=== PATIENT | female | born 1965 | race Caucasian/White ===

== ENCOUNTER 2016-12-13 22:14 | Emergency (ER) ==
[2016-12-13 22:51] LABS: MANUAL DIFF NEEDED? NO
[2016-12-13 22:55] LABS: BASO% 0.5 % (0.0-0.8); EOS# 0.35 X1000 (0.0-0.7); EOS% 4.4 % (0.0-10.0); HEMATOCRIT 42.2 % (37.0-47.0); HEMOGLOBIN 13.9 g/dL (12.0-16.0); LYMPH# 1.76 X1000 (1.2-3.4); MCH 28.8 PG (27-31); MCHC 32.9 g/dL (33-37); MCV 87.4 FL (81-99); MONO# 0.93 X1000 (0.11-0.59); MONO% 11.6 % (1.7-9.3); MPV 10.4 FL (7.4-10.4); NEUT% 61.5 % (42.2-75.2); PLT 328 X1000 (130-400); RBC 4.83 XMIL (4.2-5.4)
[2016-12-13 23:04] LABS: INR 0.95; PROTIME 10.1 Seconds (9.2-11.7); PTT 26.5 Seconds (22.0-36.0)
[2016-12-13 23:31] LABS: AGAP 18; ALBUMIN 4.3 g/dL (3.5-5.0); ALKALINE PHOSPHATASE 95 U/L (32-104); BUN 15 mg/dL (8-22); CALCIUM 9.7 mg/dL (8.8-10.2); CHLORIDE 97 mmol/L (98-107); CK PROFILE 62 U/L (24-173); COSMO 284; GOT 17 U/L (10-30); GPT 18 U/L (10-36); MAGNESIUM 2.2 mg/dL (1.5-2.7); POTASSIUM 4.5 mmol/L (3.5-5.1); SODIUM 139 mmol/L (136-145); TCO2 24 mmol/L (25-35); TOTAL BILIRUBIN 0.26 mg/dL (0.20-1.00); TOTAL PROTEIN 6.7 g/dL (6.3-8.3)
[2016-12-14] MEDS ORDERED: PROTONIX IV ONE (00:34)
[2016-12-14] MEDS ORDERED: SODIUM CHLORIDE 0.9% INJ ONE (00:34)
[2016-12-14] MEDS ORDERED: G.I. COCKTAIL PO ONE (00:34)
--- NOTE | 2016-12-14 01:09 | PROVIDER DOCUMENTATION ---
HPI-Chest Pain - General Source: patient - History of Present Illness-CP Location: reports: substernal Chest Pain Radiation: reports: no radiation Quality of Pain: reports: aching Severity in ED: mild Onset/Duration: last night Timing: resolved prior to arrival Context/Activities at Onset: reports: none Associated Symptoms: reports: shortness of breath Aspirin Treatment Today: 81 mg x 2, provided at home Similar Symptoms Previously?: No Recently Seen Here or By Another Healthcare Provider: No <Fawn Flor - Last Filed: 12/14/16 01:04> <Chema Curry - Last Filed: 12/14/16 02:51> - General Chief Complaint: Chest Pain Stated Complaint: CP Time Seen by Provider: 12/14/16 00:18 Allergies/Adverse Reactions: Patient Allergies Allergy/AdvReac Type Severity Reaction Status Date / Time codeine AdvReac NAUSEA Verified 12/13/16 22:34 Sulfa (Sulfonamide AdvReac RASH Verified 12/13/16 22:34 Antibiotics) tetracycline AdvReac NAUSEA Verified 12/13/16 22:34 Home Medications: Home Medication List Medication Instructions Recorded Confirmed Last Taken Type Cetirizine [Zyrtec] 10 mg PO DAILY #20 tablet 12/14/16 Unknown Rx Omeprazole 20 mg PO DAILY #20 tablet. 12/14/16 Unknown Rx - History of Present Illness-CP Nature of Presenting Problem: 51 year old F presents to the ED with a cc of chest pain and shortness of breath. PT states that it began while sitting on the cough. PT denies nausea, vomiting, and diaphoresis. PT took x2 81 mg of Aspirin at home [employer]. PT states that she has a hx of palpitations and GERD. (Fawn Flor) Review of Systems - Adult - REVIEW OF SYSTEMS - ADULT Constitutional: denies: chills, fever Eyes: reports: no symptoms reported Ears, Nose, Mouth & Throat: reports: no symptoms reported Cardiovascular: reports: chest pain. denies: palpitations Respiratory: reports: shortness of breath. denies: cough Gastrointestinal: denies: abdominal pain, diarrhea, nausea, vomiting Genitourinary: denies: dysuria, hematuria Musculoskeletal: denies: back pain, neck pain Integumentary: reports: no symptoms reported Neurological: denies: dizziness/vertigo, headache/migraines Psychiatric: reports: no symptoms reported Endocrine: reports: no symptoms reported Hematologic/Lymphatic: reports: no symptoms reported Allergic/Immunologic: reports: no symptoms reported All Other Systems: Reviewed and Negative <Fawn Flor - Last Filed: 12/14/16 01:04> Past History - Adult - PAST MEDICAL HISTORY-ADULT Review of Records: reports: Nursing Assessment Review, Medications Reviewed Major Childhood Illnesses: reports: denies history Cardiovascular: reports: denies history Respiratory: reports: denies history Gastrointestinal: reports: GERD Obstetrical/Gynecological: reports: denies history Genitourinary: reports: denies history Musculoskeletal: reports: denies history Neurological: reports: denies history Endocrine/Immune: reports: Diabetes, thyroid disorder Other Conditions: reports: denies history - PRIOR SURGERIES/PROCEDURES Surgical/Procedure History: reports: hysterectomy, orthopedic (extremity) - IMMUNIZATION STATUS Childhood Immunizations: See Nurse Assessment Flu Vaccine: See Nurse Assessment - FAMILY HISTORY Family History: reviewed, not pertinent - SOCIAL HISTORY Smoking: non-smoker Substance Use: none/never Alcohol Use Frequency: never <Fawn Flor Last Filed: 12/14/16 01:04> Physical Exam-General - PHYSICAL EXAM-ADULT Initial Vital Signs Reviewed: Yes - CONSTITUTIONAL General Appearance: appears well, alert, no apparent distress - RESPIRATORY Respiratory: chest non-tender, lungs clear, normal breath sounds - CARDIOVASCULAR Cardiovascular: normal peripheral pulses, regular rate, rhythm, no edema - GASTROINTESTINAL (ABDOMEN) Abdominal Exam: normal bowel sounds, non tender, soft - MUSCULOSKELETAL Extremity: normal inspection, no pedal edema - SKIN Integumentary: normal color, normal turgor, warm/dry - PSYCHIATRIC Psych/Mental Status: normal mood/affect, normal thought content, normal thought process, oriented x 3 <Fawn Flor - Last Filed: 12/14/16 01:04> Progress - EKG 1 Time of EKG reading by physician:: 22:20 EKG Read and Signed by:: Hunter Marinelli EKG Interpretation (*Must complete 3 of following elements*): Abnormal Rate: 83 Rhythm: NSR [employer]: normal Comments: possible L atrial enlargement, cannot r/o anterior infarct,age undetermined <Fawn Flor - Last Filed: 12/14/16 01:04> - XRAY 1 XRAY Study: Chest XRAY Interpretation: [facility] [place]) - CT/MRI 1 CT Study: Thorax CT Results: No PE identified (Ivanlucia) <Chema Curry - Last Filed: 12/14/16 02:51> - PLAN OF CARE/RESULTS Progress/Plan/Lab Results: Discussed results and plan of care with patient. Patient agrees with plan and verbalizes understanding. Vital Signs Temp Pulse Resp BP Pulse Ox 12/14/16 01:24 85 20 155/90 99 12/13/16 22:25 97.9 F 82 17 173/81 100 codeine Adverse Reaction (Verified 12/13/16 22:34) NAUSEA Sulfa (Sulfonamide Antibiotics) Adverse Reaction (Verified 12/13/16 22:34) RASH tetracycline Adverse Reaction (Verified 12/13/16 22:34) NAUSEA Laboratory 12/13/16 12/13/16 12/13/16 22:35 22:35 22:35 WBC RBC Hgb Hct MCV MCH MCHC RDW Std Deviation Plt Count MPV Immature Gran % (Auto) Neut % (Auto) Lymph % (Auto) [place] % (Auto) Eos % (Auto) Baso % (Auto) Immature Gran # (Auto) Neut # (Auto) Lymph # (Auto) [place] # (Auto) Eos # (Auto) Baso # (Auto) PT 10.1 INR 0.95 PTT (Actin FS) 26.5 D-Dimer Sodium Potassium Chloride Carbon Dioxide Anion Gap BUN Creatinine Estimated GFR/1.73 m2 BUN/Creatinine Ratio Glucose Calculated Osmolality Calcium Magnesium Total Bilirubin AST ALT Alkaline Phosphatase Creatine Kinase Troponin T < 0.010 Lwa-N-Judxyybptpo Pept 22 Total Protein Albumin Globulin Albumin/Globulin Ratio 12/13/16 12/13/16 12/13/16 22:35 22:35 22:35 WBC 8.00 RBC 4.83 Hgb 13.9 Hct 42.2 MCV 87.4 MCH 28.8 MCHC 32.9 L RDW Std Deviation 12.6 Plt Count 328 MPV 10.4 Immature Gran % (Auto) 0.0 Neut % (Auto) 61.5 Lymph % (Auto) 22.0 [place] % (Auto) 11.6 H Eos % (Auto) 4.4 Baso % (Auto) 0.5 Immature Gran # (Auto) 0.00 Neut # (Auto) 4.92 Lymph # (Auto) 1.76 [place] # (Auto) 0.93 H Eos # (Auto) 0.35 Baso # (Auto) 0.04 PT INR PTT (Actin FS) D-Dimer 0.95 H Sodium 139 Potassium 4.5 Chloride 97 L Carbon Dioxide 24 L Anion Gap 18 BUN 15 Creatinine 0.9 Estimated GFR/1.73 m2 > 60 BUN/Creatinine Ratio 17 Glucose 203 H Calculated Osmolality 284 Calcium 9.7 Magnesium 2.2 Total Bilirubin 0.26 AST 17 ALT 18 Alkaline Phosphatase 95 Creatine Kinase 62 Troponin T Owh-T-Mujgxxmkxhk Pept Total Protein 6.7 Albumin 4.3 Globulin 2.4 Albumin/Globulin Ratio 1.8 Orders Category Date Time Status Cardiac Monitoring DIRECTED Care 12/13/16 22:36 Active Saline Loc NOW Care 12/13/16 22:36 Active CHEST-2 VIEWS [RAD] Stat Exams 12/13/16 22:36 Taken CTA [ANGIOGRAM/PULMONARY ARTERIES] [CT] Stat Exams 12/14/16 00:34 Ordered CBC WITH ELECTRONIC DIFF [HEME] Stat Lab 12/13/16 22:35 Completed CK PROFILE [SP CHEM] Stat Lab 12/13/16 22:35 Completed COMPREHENSIVE METABOLIC PANEL [CHEM] Stat Lab 12/13/16 22:35 Completed D-DIMER [CHEM] Stat Lab 12/13/16 22:35 Completed MAGNESIUM [CHEM] Stat Lab 12/13/16 22:35 Completed PRO B-NATRIURETIC PEPTIDE Stat Lab 12/13/16 22:35 Completed PROTIME WITH INR [COAG] Stat Lab 12/13/16 22:35 Completed PTT [COAG] Stat Lab 12/13/16 22:35 Completed TROPONIN T Stat Lab 12/13/16 22:35 Completed [place] Alk/Al&mg Hydrox [G.i. Cocktail] Med 12/14/16 00:34 Discontinued 30 ml PO NOW ONE Pantoprazole [Protonix] Med 12/14/16 00:34 Discontinued 40 mg IV NOW ONE Sodium Chloride 0.9% Med 12/14/16 00:34 Discontinued 10 ml INJ NOW ONE EKG [EKG] Stat Ther 12/13/16 22:15 Ordered Laboratory Tests 12/13/16 12/13/16 12/13/16 22:35 22:35 22:35 WBC 8.00 RBC 4.83 Hgb 13.9 Hct 42.2 MCV 87.4 MCH 28.8 MCHC 32.9 L RDW Std Deviation 12.6 Plt Count 328 MPV 10.4 Immature Gran % (Auto) 0.0 Neut % (Auto) 61.5 Lymph % (Auto) 22.0 [place] % (Auto) 11.6 H Eos % (Auto) 4.4 Baso % (Auto) 0.5 Immature Gran # (Auto) 0.00 Neut # (Auto) 4.92 Lymph # (Auto) 1.76 [place] # (Auto) 0.93 H Eos # (Auto) 0.35 Baso # (Auto) 0.04 PT INR PTT (Actin FS) D-Dimer 0.95 H Sodium 139 Potassium 4.5 Chloride 97 L Carbon Dioxide 24 L Anion Gap 18 BUN 15 Creatinine 0.9 Estimated GFR/1.73 m2 > 60 BUN/Creatinine Ratio 17 Glucose 203 H Calculated Osmolality 284 Calcium 9.7 Magnesium 2.2 Total Bilirubin 0.26 AST 17 ALT 18 Alkaline Phosphatase 95 Creatine Kinase 62 Troponin T Dor-K-Ezvfwhpjpeb Pept Total Protein 6.7 Albumin 4.3 Globulin 2.4 Albumin/Globulin Ratio 1.8 12/13/16 12/13/16 12/13/16 22:35 22:35 22:35 WBC RBC Hgb Hct MCV MCH MCHC RDW Std Deviation Plt Count MPV Immature Gran % (Auto) Neut % (Auto) Lymph % (Auto) [place] % (Auto) Eos % (Auto) Baso % (Auto) Immature Gran # (Auto) Neut # (Auto) Lymph # (Auto) [place] # (Auto) Eos # (Auto) Baso # (Auto) PT 10.1 INR 0.95 PTT (Actin FS) 26.5 D-Dimer Sodium Potassium Chloride Carbon Dioxide Anion Gap BUN Creatinine Estimated GFR/1.73 m2 BUN/Creatinine Ratio Glucose Calculated Osmolality Calcium Magnesium Total Bilirubin AST ALT Alkaline Phosphatase Creatine Kinase Troponin T < 0.010 Sxu-K-Eeedwcywmcx Pept 22 Total Protein Albumin Globulin Albumin/Globulin Ratio (Chema Curry) Departure <Fawn Flor - Last Filed: 12/14/16 01:04> - Departure Time of Disposition Order: 02:46 Certified Medical Emergency: Emergent <Chema Curry - Last Filed: 12/14/16 02:51> - Departure DIAGNOSIS: GERD (gastroesophageal reflux disease) Qualifiers: Esophagitis presence: without esophagitis Qualified Code(s): K21.9 - Gastro- esophageal reflux disease without esophagitis Disposition: HOME 01 Condition: Stable Additional Instructions: Follow up with primary care physician Take medications as directed Return to ED for any concerns or worsening of symptoms ED Follow Up Instructions: You have been treated by a care provider in the Emergency Department. These instructions are being provided to you so you can have an understanding of how to care for yourself upon discharge. Upon discharge from the Emergency Department, you are responsible for making arrangements for follow-up care by a physician of your choice. Take all prescribed medications as directed. Return to the Emergency Department immediately for any new or worsening symptoms. You may call the Physician Referral phone number at [phone] to obtain a list of Physicians who are taking new patients. Prescriptions: Omeprazole 20 mg PO DAILY #20 tablet. Cetirizine [Zyrtec] 10 mg PO DAILY #20 tablet Attestation - Scribe Verification/Attestation Scribe:: Fawn Flor Acting as Scribe for:: Chema Curry Scribe documention review:: This chart was documented by a scribe and accurately reflects the service the provider performed and the decisions made by the provider. <Fawn Flor - Last Filed: 12/14/16 01:04> - Physician/ BRIELLE Attestation Patient care was provided by Advanced Practice Provider:: Yes Advanced Practice Provider:: Chema Curry Advanced Practice Provider documentation review:: The Mid-level provider documentation, treatment plan and medical decision making was reviewed by the physician who agrees with all treatment and medical decision making by the [facility]. <Chema Curry - Last Filed: 12/14/16 02:51> Physician Attestation - Physician Attestation I, the provider, attest to the following statement:: Chema Curry Physician documentation Attestation:: This documentation recorded by the scribe accurately reflects the service I personally performed and the decisions made by me. <Fawn Flor - Last Filed: 12/14/16 01:04>
[2016-12-14 01:24] VITALS: BP 155/90
--- NOTE | 2016-12-14 06:00 | EKG Report ---
Test Performed on : 12/13/2016 10:20:55 PM Test Reason : CP Blood Pressure : / mmHG Vent. Rate : 083 BPM Atrial Rate : 083 BPM P-R Int : 168 ms QRS Dur : 074 ms QT Int : 390 ms P-R-T Axes : 048 025 054 degrees QTc Int : 458 ms Normal sinus rhythm. Possible Left atrial enlargement Cannot rule out Anterior infarct , age undetermined Abnormal ECG No previous ECGs available Unconfirmed Result
--- NOTE | 2016-12-14 08:20 | Diag Imaging Result Document ---
PROCEDURE NAME: CHEST-2 VIEWS - 12/13/2016 FRONTAL AND LATERAL CHEST, TWO VIEWS: FINDINGS: The lungs are well expanded. The heart is not enlarged. The vessels are not distended. No pneumonia. No pleural effusions. No free air beneath the diaphragm. IMPRESSION: No acute abnormality.
--- NOTE | 2016-12-14 08:23 | Diag Imaging Result Document ---
PROCEDURE NAME: ANGIOGRAM/PULMONARY ARTERIES - 12/14/2016 CT ANGIOGRAM OF PULMONARY ARTERIES WITH CONTRAST: Exam performed with intravenous contrast. A dose-reduction protocol was used. Axial and reformatted coronal images are obtained. FINDINGS: There are no filling defects identified in the pulmonary arteries. There is no indication of aortic dissection. The lungs appear essentially clear. There is no pleural effusion or pneumothorax identified. There are no abnormally enlarged mediastinal lymph nodes identified. There has been previous right thyroidectomy. There is residual thyroid tissue noted on the left. IMPRESSION: 1. No evidence of pulmonary embolism. 2. No pneumonia. No pneumothorax. 3. Status post right thyroidectomy. There is residual thyroid tissue noted on the left. Correlation with clinical history and evaluation is recommended. A [facility] physician provided preliminary results at 1:38 a.m. on 12/14/2016. MTDD
== END 2016-12-14 03:04 | disposition home or self-care (01) ==
LOC: ED 22:14
DX: K21.9 Gastro-esophageal reflux disease without esophagitis (principal); R94.31 Abnormal electrocardiogram [ECG] [EKG]; R07.89 Other chest pain; R06.02 Shortness of breath; E11.9 Type 2 diabetes mellitus without complications
CPT/HCPCS: 71020; 71275; 80053; 82550; 83735; 83880; 84484; 85025; 85379; 85610; 85730; 93005; C9113; Q9967; S0164